=== PATIENT | male | born 1960 | race Caucasian/White ===

== ENCOUNTER 2019-08-30 23:44 | Emergency (ER) | payer BC, SELFPAY ==
[2019-08-31 00:02] VITALS: BP 155/92; PULSE 71; RESP 20; TEMP 35.8; O2SAT 94
--- NOTE | 2019-08-31 00:50 | CTR_ITS ---
PROCEDURE INFORMATION: Exam: CT Abdomen And Pelvis Without Contrast Exam date and time: 08/31/2019 12:52 AM Age: 59 years old Clinical indication: Pain; Other: Left flank; Additional info: Left flank pain, hematuria TECHNIQUE: Imaging protocol: Computed tomography of the abdomen and pelvis without contrast. Radiation optimization: All CT scans at this facility use at least one of these dose optimization techniques: automated exposure control; mA and/or kV adjustment per patient size (includes targeted exams where dose is matched to clinical indication); or iterative reconstruction. COMPARISON: CT abdomen pelvis w con* [id number] 06/17/2013 8:19 PM RADIATION DOSE METRICS: Total DLP (mGy-cm): 1844.42 FINDINGS: Liver: The liver is mildly enlarged and demonstrates mild fatty infiltration changes. Gallbladder and bile ducts: Normal. No calcified stones. No ductal dilation. Pancreas: Normal. No ductal dilation. Spleen: Normal. No splenomegaly. Adrenals: Normal. No mass. Kidneys and ureters: A 4 mm renal stone is present in the distal left ureter. Mild left hydronephrosis is noted. The right kidney appears normal. Stomach and bowel: Diverticulosis coli is seen, without evidence of diverticulitis. No intestinal obstruction. Appendix: The appendix is normal. Intraperitoneal space: Unremarkable. No free air. No significant fluid collection. Vasculature: Unremarkable. No abdominal aortic aneurysm. Lymph nodes: Unremarkable. No enlarged lymph nodes. Bladder: Unremarkable as visualized. Reproductive: Unremarkable as visualized. Bones/joints: Unremarkable. No acute fracture. Soft tissues: Unremarkable. CT/CT kidney stone [id number] IMPRESSION: 1. Distal left ureter 4 mm renal stone and mild left hydronephrosis. 2. Mild hepatomegaly and hepatic steatosis. 3. Diverticulosis coli. Radiation Dose CTDIVOL = (mGy): DLP = 1844.42 (mGy-cm)
--- NOTE | 2019-08-31 00:51 | ED_ITS ---
HPI - Abdominal Pain General: Chief Complaint: Abdominal Pain Stated Complaint: abd pain/possible kidney stone Time Seen by Provider: 08/31/19 00:45 Source: patient Mode of arrival: ambulatory Limitations: no limitations History of Present Illness: HPI narrative: 59-year-old male patient comes in today with complaints of left flank pain with nausea and vomiting. Patient reports history of renal stones. Patient reports he did note some blood 2 to 3 days ago that resolved but then today this morning he started having significant left flank pain going into his groin. Patient appears mildly unwell. Patient appears in moderate pain. Patient reports that ketorolac works better for his pain the morphine. MD elicited complaint: flank pain Review of Systems General: Reports: 10 or more systems reviewed and unremarkable except in HPI and below : Reports: flank pain Physical Exam Const: COMMON NORMALS: no acute distress and patient oriented x3 GENERAL APPEARANCE: cooperative HENMT: COMMON NORMALS: normocephalic and Normal external nose present HEAD & SCALP: normal to inspection and normocephalic NOSE: Normal external nose present MOUTH: Normal oral and palatal mucosa present THROAT: posterior oropharynx normal Eye: GENERAL EYE: appearance normal, both eyes and all related structures Neck/C-Spine: COMMON NORMALS: full ROM Lymph: LYMPHATIC: no lymphadenopathy noted Chest: COMMONS NORMALS: normal inspection of the chest Resp: COMMON NORMALS: normal respiratory effort EFFORT & INSPECTION: Yes able to speak in complete sentences Cardio: COMMON NORMALS: regular rate and regular rhythm RATE: regular rate RHYTHM: regular rhythm GI: COMMON NORMALS: non-tender : BLADDER/KIDNEY EXAM: Yes CVA tenderness on the left Back/Pelvis: COMMON NORMALS: thoracic and lumbar spine normal to inspection GENERAL BACK: Yes CVA tenderness Extremity: COMMON NORMALS: normal to inspection Neuro: COMMON NORMALS: patient oriented x3 and moves all extremities Psych: COMMON NORMALS: mental status grossly normal and cooperative Skin: COMMON NORMALS: no rashes or lesions noted GENERAL SKIN EXAM: no rashes or lesions noted Course Vital Signs: Vital signs: Vital Signs Temperature 96.4 F L 08/31/19 00:02 Pulse Rate 71 08/31/19 00:02 Respiratory Rate 20 H 08/31/19 00:02 Blood Pressure 155/92 08/31/19 00:02 Pulse Oximetry 94 08/31/19 00:02 MDM - Abdominal Pain MDM Narrative: Medical decision making narrative: Patient comes in today for complaints of left flank pain radiating into the groin. Patient states that he believes he has a renal stone. Patient was unable to get medication prescribed by his primary care to treat his renal stone. Patient appears well. Patient appears in moderate pain. Patient has CVA tenderness on the left side. Abdomen soft nontender. Vital signs are normal. Differential diagnosis includes pyelonephritis, renal calculi, UTI. Patient has a mild elevation white count of 16,000, patient does have some elevation in his creatinine at 1.6. Patient though is afebrile. Patient does have a history of hypertension and some renal insufficiency. No signs of infection is noted at this time patient's pain was controlled with ketorolac. Patient wants to follow-up with his urologist in [place], Dr. Mccarty. Discussed with patient need to return to the ER for high fever. Patient reports understanding and agreed to plan. Patient was prescribed ketorolac for his pain as his urologist will use it, and is what is effective for patient's pain. Lab Data: Labs: Lab Results 08/31/19 08/31/19 Range/Units 01:20 01:20 WBC 16.5 H (4.0-10.0) 10^3/ uL RBC 4.86 (4.1-5.3) 10^6/u L Hgb 14.7 (11.7-16.6) g/dL Hct 45.1 (42.0-52.0) % MCV 92.8 (80-94) fL MCH 30.2 (28.0-34.0) pg MCHC 32.6 (30.0-36.0) g/dL RDW 12.3 (12.1-15.1) % Plt Count 314 (130-400) 10^3/c mm MPV 9.9 (7.4-10.4) fL Neut % (Auto) 78.0 % Lymph % (Auto) 13.4 % Richardson % (Auto) 7.2 % Eos % (Auto) 0.6 % Baso % (Auto) 0.3 % Neut # (Auto) 12.82 H (1.8-7.7) 10^3/u L Lymph # (Auto) 2.2 (0.8-4.8) 10^3/u L Richardson # (Auto) 1.2 H (0.2-0.9) 10^3/u L Eos # (Auto) 0.1 (0.0-0.8) 10^3/u L Baso # (Auto) 0.1 (0.0-0.1) 10^3/u L Nucleated RBC % (a uto) 0 % Nucleated RBCs # 0.0 /100WBC Sodium 138 (136-145) mmol/L Potassium 4.3 (3.5-5.1) mmol/L Chloride 102 (98-107) mmol/L Carbon Dioxide 22 (22-29) mmol/L Anion Gap 18.3 (5-19) BUN 16 (8-23) mg/dL Creatinine 1.6 H (0.7-1.2) mg/dL GFR Calculation 44.3 L (90-130) mL/min Glucose 246 H (65-115) mg/dL Calculated Osmolal ity 291 (285-295) mOsm/k g Calcium 9.3 (8.5-10.5) mg/dL Total Bilirubin 0.5 (0.15-1.2) mg/dL AST 28 (0-40) U/L ALT 50 H (0-41) U/L Alkaline Phosphata se 102 (40-130) IU/L Total Protein 7.9 (6.6-8.7) g/dL Albumin 4.5 (3.5-5.2) g/dL Globulin 3.4 (1.3-4.6) g/dL Lipase 66 H (13-60) U/L Discharge Plan Discharge Patient Disposition: Home, Self-Care Clinical Impression: Calculus of kidney Condition: Stable Prescriptions: New hydrocodone-acetaminophen 5-325 mg tablet 1 tab PO Q6H PRN (Reason: pain) Qty: 10 RF: 0 tamsulosin 0.4 mg capsule 0.4 mg PO DAILY Qty: 10 RF: 0 ketorolac 10 mg tablet 10 mg PO Q6H PRN (Reason: pain) 3 Days Qty: 9 RF: 0 ondansetron HCl 4 mg tablet 4 mg PO Q8H PRN (Reason: nausea and vomiting) Qty: 10 RF: 0 Discharge Orders: Discharge Order (Routine); Ordered 08/31/19 Ordered By: Pk J Rodriguez Discharge Diet: Usual diet Discharge Activity: Increase activity as tolerated Patient Instructions: Renal Colic (ED) Activity Restrictions/Additional Instructions: Drink plenty of water. Use medications as directed. Follow-up with primary care for further treatment and evaluation. Return to the emergency department for high fever greater than 100.4, or uncontrolled pain. Coding Level of Care Code ED Clinical Research Analyst for Dileep Levin Exam Comprehensive
[2019-08-31] MEDS: ketorolac 30 mg/mL INJ 15 MG IVP (01:26)
[2019-08-31] MEDS: ondansetron 2 mg/ML SDV 2 mL 4 MG IVP (01:26)
[2019-08-31 01:28] LABS: Basophils # 0.1 10^3/uL (0.0-0.1); Basophils % 0.3 %; Eosinophils # 0.1 10^3/uL (0.0-0.8); Eosinophils % 0.6 %; Hematocrit 45.1 % (42.0-52.0); Hemoglobin 14.7 g/dL (11.7-16.6); Lymphocytes # 2.2 10^3/uL (0.8-4.8); Lymphocytes % 13.4 %; Mean Corpuscular HGB Conc 32.6 g/dL (30.0-36.0); Mean Corpuscular Hemoglobin 30.2 pg (28.0-34.0); Mean Corpuscular Volume 92.8 fL (80-94); Mean Platelet Volume 9.9 fL (7.4-10.4); Monocytes # 1.2 10^3/uL (0.2-0.9); Monocytes % 7.2 %; Neutrophils # 12.82 10^3/uL (1.8-7.7); Nucleated Red Blood Cells % 0 %; Platelet Count 314 10^3/cmm (130-400); Red Blood Count 4.86 10^6/uL (4.1-5.3); Red Cell Distribution Width 12.3 % (12.1-15.1); White Blood Count 16.5 10^3/uL (4.0-10.0)
[2019-08-31 01:42] LABS: Alanine Aminotransferase 50 U/L (0-41); Albumin Level 4.5 g/dL (3.5-5.2); Alkaline Phosphatase 102 IU/L (40-130); Anion Gap 18.3 (5-19); Aspartate Amino Transferase 28 U/L (0-40); Blood Urea Nitrogen 16 mg/dL (8-23); Calcium 9.3 mg/dL (8.5-10.5); Carbon Dioxide 22 mmol/L (22-29); Chloride 102 mmol/L (98-107); Globulin 3.4 g/dL (1.3-4.6); Glomerular Filtration Rate 44.3 mL/min (90-130); Glucose 246 mg/dL (65-115); Lipase 66 U/L (13-60); Osmolality Calculated 291 mOsm/kg (285-295); Potassium 4.3 mmol/L (3.5-5.1); Sodium 138 mmol/L (136-145); Total Bilirubin 0.5 mg/dL (0.15-1.2); Total Protein 7.9 g/dL (6.6-8.7)
[2019-08-31] MEDS: ketorolac 10 mg Tablet PO (02:58)
[2019-08-31] MEDS: cefTRIAXone 1,000 MG in sodium chloride 0.9% (plus) 50 ML 100 MG IV (03:26)
[2019-08-31 04:04] VITALS: BP 158/82; PULSE 68; RESP 17; O2SAT 98
== END 2019-08-31 04:05 | disposition home or self-care (01) ==
PROVIDERS: Emergency Provider Nurse Practitioner Family
DX: N20.0 Calculus of kidney (principal)
CPT/HCPCS: 12345; 74176; 80053; 83690; 85025; 96365; 96375; 99282; 99283; J0696; J1885; J2405

== ENCOUNTER 2023-04-24 19:44 | Emergency (ER) | payer MEDICARE, SELFPAY ==
[2023-04-24 19:58] VITALS: BP 152/75; PULSE 81; RESP 16; TEMP 36.8; O2SAT 98; BMI 32.5
--- NOTE | 2023-04-24 20:34 | W.ED.ABDPA2 ---
HPI - Abdominal Pain General: Chief Complaint: Abdominal Pain Stated Complaint: Lower abd pain Time Seen by Provider: 04/24/23 20:25 Source: patient Mode of arrival: ambulatory Limitations: no limitations History of Present Illness: 62-year-old male states he had a history of umbilical hernia in the past along with diverticulitis states he is out working in the yard today and gotten up and down and was having some pain at his bellybutton and also bandlike pain states it was sharp in nature he states that since resting his pain is completely resolved he denies any fever denies any diarrhea denies any vomiting. Associated Symptoms: Denies chills, diarrhea, fever(s), nausea and vomiting Review of Systems Const: Denies: fever(s), chills, body aches or change in appetite ENMT: Denies: throat pain or dental pain Card: Denies: chest pain Resp: Denies: dyspnea GI: Reports: abdominal pain; Denies: nausea, vomiting or diarrhea Musc: Denies: neck pain or back pain Skin/Breast: Denies: rash Neuro: Denies: headache(s) Physical Exam Const: COMMON NORMALS: no acute distress, patient oriented x3 and healthy appearing HENMT: COMMON NORMALS: normocephalic and atraumatic HEAD & SCALP: normocephalic and atraumatic Neck/C-Spine: COMMON NORMALS: full ROM Chest: COMMONS NORMALS: normal inspection of the chest Resp: COMMON NORMALS: normal respiratory effort Cardio: COMMON NORMALS: regular rate, regular rhythm and No murmurs present (Cardio) RATE: regular rate RHYTHM: regular rhythm GI: COMMON NORMALS: Normal to inspection, nondistended, normoactive bowel sounds present, Soft to palpation, non-tender and no masses PALPATION: Yes Soft to palpation Extremity: COMMON NORMALS: normal to inspection and full ROM Neuro: COMMON NORMALS: patient oriented x3, moves all extremities and no focal motor deficits Psych: COMMON NORMALS: mental status grossly normal, Normal thought process present and cooperative THOUGHT PROCESS: Normal thought process present Skin: COMMON NORMALS: no rashes or lesions noted and no wounds GENERAL SKIN EXAM: no rashes or lesions noted Course Vital Signs: Vital signs: Vital Signs Temperature 98.2 F 04/24/23 19:58 Pulse Rate 82 04/24/23 20:47 Respiratory Rate 24 H 04/24/23 20:47 Blood Pressure 146/77 04/24/23 20:47 Pulse Oximetry 93 04/24/23 20:47 Oxygen Delivery Me thod Room Air 04/24/23 20:47 MDM - Abdominal Pain Medical Decision Making Patient presents here with abdominal pain since resolved likely from his hernia patient's feeling much improved he refused blood draw here I went spoke to him he states he feels improved and he thinks it is from overworking his abdominal exam is benign he is stable for discharge he is follow-up with his surgeon in [place] return if worsening he understands agrees to plan Medical Records I reviewed the patient's medical records. Lab Data I reviewed the patient's lab results. All radiology interpretation(s) finalized by discharge Discharge Plan Discharge Patient Disposition: Home Clinical Impression: Abdominal pain Condition: Stable Prescriptions: No Action hydrocodone-acetaminophen 5-325 mg tablet 1 tab PO Q6H PRN (Reason: pain) Qty: 10 0RF tamsulosin 0.4 mg capsule 0.4 mg PO DAILY Qty: 10 0RF ondansetron HCl 4 mg tablet 4 mg PO Q8H PRN (Reason: nausea and vomiting) Qty: 10 0RF Discharge Orders: Discharge ED (Routine); Ordered 04/24/23 Ordered By: Yakov Malagon Referrals: Jorge Tanner MD [Primary Care Provider] - 4-7 days Discharge Diet: Advance as tolerated Discharge Activity: Resume usual activity Patient Instructions: Abdominal Pain (ED) Coding Level of Care Code ED Musculoskeletal Physiotherapist for Dileep Levin
[2023-04-24 20:47] VITALS: BP 146/77; PULSE 82; RESP 24; O2SAT 93
[2023-04-24 21:17] LABS: Protein Urine Neg (Negative); Specific Gravity, Urine 1.025 (1.005-1.030); Urine Appearance Clear (CLEAR); Urine Color Yellow (Yellow); pH Urine 5 (5-7)
[2023-04-24 21:18] LABS: Add Urine Microscopic? YES; Bilirubin Urine Neg (Negative); Blood Urine 3+ (Negative); Glucose Urine UA 4+ (Normal); Ketones Urine 1+ (Negative); Leukocyte Esterase Urine Negative (Negative); Nitrate Urine Negative (Negative); Squamous Epithelial Cell Urine 0-4 /hpf (0-5); Urobilinogen Urine Neg (Negative)
[2023-04-24 21:19] LABS: Bacteria Urine TRACE /hpf; Mucus Urine TRACE /hpf
[2023-04-24 21:29] VITALS: BP 138/78; PULSE 75; RESP 16; TEMP 36.8; O2SAT 95
== END 2023-04-24 21:30 | disposition home or self-care (01) ==
PROVIDERS: Emergency Provider Emergency Medicine; PCP Internal Medicine
DX: R10.30 Lower abdominal pain, unspecified (principal)
CPT/HCPCS: 81001; 99283